=== PATIENT | female | born 1990 | race Hispanic/Latino ===

== ENCOUNTER 2018-08-07 03:26 | Emergency (ER) | payer OTHER, SELFPAY ==
[2018-08-07] MEDS ORDERED: Bacitracin Zinc 1 Packet ONE (05:27)
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
== END 2018-08-07 05:44 | disposition home or self-care (01) ==
LOC: ERS 03:26
DX: S81.812A Laceration without foreign body, left lower leg, initial encounter (principal); S00.83XA Contusion of other part of head, initial encounter; S10.93XA Contusion of unspecified part of neck, initial encounter; F41.9 Anxiety disorder, unspecified; F17.210 Nicotine dependence, cigarettes, uncomplicated; Y09 Assault by unspecified means
CPT/HCPCS: 12002; 70450; 71045; 72125